=== PATIENT | female | born 1955 | race Caucasian/White ===

== ENCOUNTER 2019-10-12 08:41 | Day surgery (SDC) | payer OTHER ==
[~2019-10-12] VITALS: Ht 157.5 cm; Wt 63.5 kg
[2019-10-12] MEDS ORDERED: fentaNYL 0.05 MG/ML VIAL ONE (11:28)
[2019-10-12] MEDS ORDERED: LIDOCAINE 2% 100 MG/5 ML UJET TP ONE (11:28)
[2019-10-12] MEDS ORDERED: fentaNYL 0.05 MG/ML VIAL IVP ONE (12:50)
== END 2019-10-12 12:55 | disposition home or self-care (01) ==
LOC: MDS 08:41 → MMU 08:46 → MDS 12:55
PROVIDERS: ATTEND Internal Medicine Gastroenterology
DX: Z12.11 Encounter for screening for malignant neoplasm of colon (principal); E78.00 Pure hypercholesterolemia, unspecified; H91.90 Unspecified hearing loss, unspecified ear; M19.90 Unspecified osteoarthritis, unspecified site; M79.7 Fibromyalgia; G43.909 Migraine, unspecified, not intractable, without status migrainosus; Z80.0 Family history of malignant neoplasm of digestive organs; Z98.890 Other specified postprocedural states; Z79.82 Long term (current) use of aspirin; Z79.899 Other long term (current) drug therapy; Z98.51 Tubal ligation status
CPT/HCPCS: 45378; J3010